=== PATIENT | male | born 1935 | race Caucasian/White ===

== ENCOUNTER 2017-01-24 16:59 | Inpatient (IN) | payer MEDICARE, BC ==
[~2017-01-24 16:59] MED LIST: ASPI325T PO; AVOD0.5C PO; CADU10TA2 PO; CLOP75 PO; EXEN10PE SQ; GLUC2.5T2 PO; INSU100V3 SC; KLOR20TA6 PO; LASI20TA PO; LISI40TA PO; NOVOLOGP2 SQ; NOVONP2 SQ; TAMS0.4C67 PO
[2017-01-24] MEDS ORDERED: LACTULOSE SYRUP 20 GM/30 ML CUP PO PRN (18:00)
[2017-01-24] MEDS ORDERED: SODIUM CHLORIDE 0.9% FLUSH 10 ML FLUSH IV FLUSH PRN (18:00)
[2017-01-24] MEDS ORDERED: NALOXONE HCL 0.4 MG/ML AMP IV PUSH PRN (18:00)
[2017-01-24] MEDS ORDERED: ONDANSETRON HCL 4 MG/2 ML VIAL IVP PRN (18:00)
[2017-01-24] MEDS ORDERED: ACETAMINOPHEN 325 MG TAB PO PRN (18:00)
[2017-01-24] MEDS ORDERED: SENNOSIDES 8.6 MG TAB PO PRN (18:00)
[2017-01-24] MEDS ORDERED: BISACODYL 10 MG SUPP RECTAL PRN (18:00)
[2017-01-24] MEDS ORDERED: MAGNESIUM HYDROXIDE SUSP 30 ML CUP PO PRN (18:00)
--- NOTE | 2017-01-24 18:27 | HHI.HP ---
HPI Service [facility] Primary Care Physician Blake Burr, DO Admission Diagnosis Diagnoses: Chief Complaint: Shortness of breath Travel History International Travel<30 Days: No Contact w/Intl Traveler <30 Da: No Traveled to Known Affected Are: No History of Present Illness This is a pleasant 81 y/o Male Patient of Doctor Will Walker who I had the pleasure to talk today and asked for direct admission for his patient, as we know he has Atrial Flutter, ASHD status post PCI and stent placement, Dm II, Hyperlipidemia, he was started on Anticoagulation for new onset of atrial flutter. also to consider antiarrhythmic medicine, the patient has Obesity, seen in his bedroom in the presence of his and he states he is been followed due to Shortness of breath for the last months and for the last two weeks is been getting worse, today saw his Primary helicopter specialist and he recommended due to CHF Exacerbation admission for further workup, also recommended to get D dimers and if positive go ahead and take a CTA versus V/Q scan depend of his renal function at this time asked for full laboratory and awaiting results. Review of Systems Constitutional: DENIES: Fever, Chills, Change in appetite Endocrine: DENIES: Heat/cold intolerance Eyes: DENIES: Blurred vision, Eye pain Cardiovascular: COMPLAINS OF: Dyspnea on Exertion Except as stated in HPI: all other systems reviewed are Neg Past Family Social History Past Medical History Atrial Flutter ASHD status post PCI stent placement to Circumflex DM II Hyperlipidemia Hypertension Hyperlipidemia Obesity CVA Diverticulosis Carotid Stenosis. Past Surgical History Tonsillectomy AAA Reported Medications Reported Meds & Active Scripts Active Reported Novolog (Insulin Aspart) 100 Units/Ml Inj Unknown Dose SQ DIRECTED Novolin N (Insulin Human NPH) 100 Units/Ml Inj 0 SQ DIRECTED Sliding Scale As Directed. Humulin N (Insulin Human NPH) 100 Unit/Ml Inj Unknown Dose SC Klor-Con M20 (Potassium Chloride Microencaps) 20 Meq Tab 20 Meq PO BID Caduet 10/20 (Amlodipine/Atorvastatin) 10 Mg/20 Mg Tab 1 Tab PO DAILY Avodart (Dutasteride) 0.5 Mg Cap 0.5 Mg PO HS Flomax (Tamsulosin HCl) 0.4 Mg Cap 0.4 Mg PO HS Byetta 10 Mcg/Dose Prefilled Pen (Exenatide) 10 Mcg/0.04 Ml Inj 10 Mcg SQ BIDAC FOR SUBCUTANEOUS INJECTION Aspirin 325 mg (Aspirin) 325 Mg Tab 325 Mg PO DAILY Plavix (Clopidogrel Bisulfate) 75 Mg Tab 75 Mg PO DAILY Glucovance 2.5/500 (Glyburide/Metformin) 2.5 Mg-500 Mg Tab 1 Tab PO DAILY WITH MEAL Lasix (Furosemide) 20 Mg Tab 20 Mg PO BID Prinivil 40 mg (Lisinopril) 40 Mg Tab 40 Mg PO DAILY Allergies: Coded Allergies: No Known Allergies (Verified , 05/08/09) Active Ordered Medications Current Medications Medications (Trade) Dose Ordered Sig/Preethi Route Start Time Stop Time Status Last Admin (NS Flush) 2 ml UNSCH PRN IV FLUSH 01/24/17 18:00 UNV (NS Flush) 2 ml BID IV FLUSH 01/24/17 21:00 UNV (Tylenol) 650 mg Q4H PRN PO 01/24/17 18:00 (Zofran Inj) 4 mg Q6H PRN IVP 01/24/17 18:00 UNV (Narcan Inj) 0.4 mg UNSCH PRN IV PUSH 01/24/17 18:00 (Arianne-Colace) 1 tab BID PO 01/24/17 21:00 (Milk Of Magnesia Liq) 30 ml Q12H PRN PO 01/24/17 18:00 (Senokot) 17.2 mg Q12H PRN PO 01/24/17 18:00 UNV (Dulcolax Supp) 10 mg DAILY PRN RECTAL 01/24/17 18:00 (Lactulose Liq) 30 ml DAILY PRN PO 01/24/17 18:00 Family History Father Mother one sister and three brothers with CAD. Social History Lives with his and denies toxic habits he smoked until 25 years ago. Physical Exam Physical Exam GENERAL: Obese patient, well-developed patient, moderate respiratory distress. SKIN: No rashes, ecchymoses or lesions. Cool and dry. HEAD: Atraumatic. Normocephalic. No temporal or scalp tenderness. EYES: Pupils equal round and reactive. Extraocular motions intact. No scleral icterus. No injection or drainage. ENT: Nose without bleeding, purulent drainage or septal hematoma. Throat without erythema, tonsillar hypertrophy or exudate. Uvula midline. Airway patent. NECK: Trachea midline. No JVD or lymphadenopathy. Supple, nontender, no meningeal signs. CARDIOVASCULAR: Irregular rate and rhythm. RESPIRATORY: Clear to auscultation. Breath sounds equal bilaterally. No wheezes , rales, or rhonchi. GASTROINTESTINAL: Abdomen soft, non-tender, nondistended. No hepato-splenomegaly , or palpable masses. No guarding. MUSCULOSKELETAL: Extremities without clubbing, cyanosis, edema 3+ NEUROLOGICAL: Awake and alert. No focal deficits. Imaging asked for CXR Caprini VTE Risk Assessment Caprini VTE Risk Assessment: Mod/High Risk (score >= 2) Caprini Risk Assessment Model Point Value = 1 Point Value = 2 Point Value = 3 Point Value = 5 Age 41-60 Minor surgery BMI > 25 kg/m2 Swollen legs Varicose veins or History of unexplained or recurrent spontaneous Oral contraceptives or hormone replacement Sepsis (< 1 month) Serious lung disease, including pneumonia (< 1 month) Abnormal pulmonary function Acute myocardial infarction Congestive heart failure (< 1 month) History of inflammatory bowel disease Medical patient at bed rest Age 61-74 Arthroscopic surgery Major open surgery (> 45 min) Laparoscopic surgery (> 45 min) Malignancy Confined to bed (> 72 hours) Immobilizing plaster cast Central venous access Age >= 75 History of VTE Family history of VTE Factor V Leiden Prothrombin [id number] Lupus anticoagulant Anticardiolipin antibodies Elevated serum homocysteine Heparin-induced thrombocytopenia Other congenital or acquired thrombophilia Stroke (< 1 month) Elective arthroplasty Hip, pelvis, or leg fracture Acute spinal cord injury (< 1 month) Prophylaxis Regimen Total Risk Factor Score Risk Level Prophylaxis Regimen 0-1 Low Early ambulation 2 Moderate Order ONE of the following: *Sequential Compression Device (SCD) *Heparin 5000 units SQ BID 3-4 Higher Order ONE of the following medications: *Heparin 5000 units SQ TID *Enoxaparin/Lovenox 40 mg SQ daily (WT < 150 kg, CrCl > 30 mL/min) *Enoxaparin/Lovenox 30 mg SQ daily (WT < 150 kg, CrCl > 10-29 mL/min) *Enoxaparin/Lovenox 30 mg SQ BID (WT < 150 kg, CrCl > 30 mL/min) AND/OR *Sequential Compression Device (SCD) 5 or more Highest Order ONE of the following medications: *Heparin 5000 units SQ TID (Preferred with Epidurals) *Enoxaparin/Lovenox 40 mg SQ daily (WT < 150 kg, CrCl > 30 mL/min) *Enoxaparin/Lovenox 30 mg SQ daily (WT < 150 kg, CrCl > 10-29 mL/min) *Enoxaparin/Lovenox 30 mg SQ BID (WT < 150 kg, CrCl > 30 mL/min) AND *Sequential Compression Device (SCD) Assessment and Plan Assessment and Plan 1. CHF exacerbation, sent by Doctor Walker from his office with history of Atrial Flutter asked for Echocardiogram, he is on Eliquis there the question by helicopter specialist about the possibility for Pulmonary emboli asked for D Dimers will start Lovenox and follow Laboratory CMP, CBA, D Dimers, Lipid panel, Hemoglobin A1C, ECG, Cardiac Enzymes Cardiology consult to his Primary helicopter specialist. Lasix 40 mg IV every 8 hours until tomorrow and follow helicopter specialist recommendations. 2. Atrial Flutter get ECG now and follow Cardiac monitoring may need Antiarrhythmic medicine 3. ASHD status post PCI stent placement to Circumflex 4. DM II continue sliding scale and on hold home medicines follow and add Insulin depend of his clinical course get Hemoglobin A1C. 5. Hyperlipidemia continue Home medicines 6. Hypertension continue anti hypertensives 7. Obesity strongly recommended diet and exercise as outpatient. 8. 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 9. Carotid Stenosis. 10. AAA stable DVT prophylaxis with Lovenox and follow Code Status Full Code. Discussed Condition With with Patient and in the room also nurse Present at all times. I had the pleasure to talk about this case with helicopter specialist Doctor Will Walker his input and recommendations Highly Appreciated. Physician Certification 2 Midnight Certification Type: Admission for Inpatient Services Order for Inpatient Services The services are ordered in accordance with Medicare regulations or non- Medicare payer requirements, as applicable. In the case of services not specified as inpatient-only, they are appropriately provided as inpatient services in accordance with the 2-midnight benchmark. Estimated LOS (days): 3 days is the estimated time the patient will need to remain in the hospital, assuming treatment plan goals are met and no additional complications. Post-Hospital Plan: Home Chalino Garcia MD Jan 24, 2017 6:27 pm
[2017-01-24 18:41] VITALS: BP 145/74; PULSE 57; PULSE 58; RESP 20; TEMP 98.3; O2SAT 97
[2017-01-24 19:00] VITALS: BP 139/76; PULSE 59; PULSE 72; RESP 18; TEMP 98.8; O2SAT 94
[2017-01-24 19:15] LABS: AUTOMATED NEUTROPHIL # 6.7 TH/MM3 (1.8-7.7); BASOPHIL % 0.4 % (0.0-2.0); EOSINOPHIL # 0.2 TH/MM3 (0-0.4); EOSINOPHIL % 1.8 % (0.0-4.0); HEMATOCRIT 35.2 % (39.0-51.0); HEMO FLAGS DIFF FINAL; LYMPH % 23.5 % (9.0-44.0); LYMPHOCYTE # 2.3 TH/MM3 (1.0-4.8); MEAN CORPUSCULAR HEMOGLOBIN 28.4 PG (27.0-34.0); MEAN CORPUSCULAR HGB CONC 34.2 % (32.0-36.0); NEUT % 68.3 % (16.0-70.0); PLATELET COUNT 212 TH/MM3 (150-450); RED BLOOD COUNT 4.24 MIL/MM3 (4.50-5.90); RED CELL DISTRIBUTION WIDTH 15.2 % (11.6-17.2); WHITE BLOOD COUNT 9.8 TH/MM3 (4.0-11.0)
[2017-01-24 19:29] LABS: ANION GAP 5 MEQ/L (5-15); AST (GOT) 16 U/L (15-37); BICARBONATE 30.1 MEQ/L (21.0-32.0); BLOOD UREA NITROGEN 19 MG/DL (7-18); CHLORIDE 104 MEQ/L (98-107); GLOMERULAR FILTRATION RATE 61 ML/MIN (>89); POTASSIUM 3.9 MEQ/L (3.5-5.1); SODIUM (NA) 139 MEQ/L (136-145)
[2017-01-24 19:31] LABS: ALT (GPT) 24 U/L (12-78)
[2017-01-24 19:36] LABS: CREATINE KINASE 228 U/L (39-308); HDL CHOLESTEROL 25.8 MG/DL (40.0-60.0); LDL CHOLESTEROL 49 MG/DL (0-99)
[2017-01-24 19:39] LABS: ALKALINE PHOSPHATASE 72 U/L (45-117); TOTAL BILIRUBIN ADULT 0.4 MG/DL (0.2-1.0)
[2017-01-24 20:00] VITALS: PULSE 62
[2017-01-24] MEDS: RESP: IPRATROPIUM 0.5 MG/2.5 ML NEB NEB SCH (20:22)
[2017-01-24] MEDS: RESP: BUDESONIDE 0.5 MG/2 ML NEB NEB SCH (20:22)
[2017-01-24 21:00] VITALS: PULSE 68
[2017-01-24] MEDS: INSULIN NovoLIN REGULAR SUPPLEMENTAL SCALE SQ SCH (21:00)
[2017-01-24] MEDS: guaiFENesin E.R. 600 MG TAB PO SCH (21:59)
[2017-01-24] MEDS: POTASSIUM CHLORIDE 20 MEQ CONTROLLED RELEASE TAB PO SCH (21:59)
[2017-01-24 22:00] VITALS: PULSE 70
[2017-01-24] MEDS: FINASTERIDE 5 MG TAB PO SCH (22:00)
[2017-01-24] MEDS: TAMSULOSIN HCL 0.4 MG CAP PO SCH (22:00)
[2017-01-24] MEDS: DOCUSATE SODIUM 50 MG/SENNA 8.6 MG TAB PO SCH (22:00)
[2017-01-24] MEDS: SODIUM CHLORIDE 0.9% FLUSH 10 ML FLUSH IV FLUSH SCH (22:01)
[2017-01-24] MEDS: FUROSEMIDE 40 MG/4 ML VIAL IV PUSH SCH (22:01)
[2017-01-24 22:38] LABS: HEMOGLOBIN A1a 1.3 %; HEMOGLOBIN A1b 2.5 %; HEMOGLOBIN Ao 78.9 %; HEMOGLOBIN LA1C 2.5 %; HEMOGLOBIN P3 4.6 %
[2017-01-24 23:00] VITALS: BP 142/69; PULSE 62; PULSE 64; RESP 18; TEMP 98.8; O2SAT 95
[2017-01-25] VITALS (24 sets, daily range): BP systolic 114–160; BP diastolic 64–86; PULSE 51–82; RESP 16–20; TEMP 97.9–98.4; O2SAT 94–99
[2017-01-25] MEDS: RESP: IPRATROPIUM 0.5 MG/2.5 ML NEB NEB SCH ×6 (00:25→20:13)
[2017-01-25 03:25] LABS: CREATINE KINASE 178 U/L (39-308)
[2017-01-25] MEDS: FUROSEMIDE 40 MG/4 ML VIAL IV PUSH SCH ×2 (06:12→17:09)
[2017-01-25 06:46] LABS: AUTOMATED NEUTROPHIL # 5.7 TH/MM3 (1.8-7.7); BASOPHIL % 0.5 % (0.0-2.0); EOSINOPHIL # 0.2 TH/MM3 (0-0.4); EOSINOPHIL % 2.3 % (0.0-4.0); HEMATOCRIT 35.8 % (39.0-51.0); HEMO FLAGS DIFF FINAL; LYMPH % 26.7 % (9.0-44.0); LYMPHOCYTE # 2.3 TH/MM3 (1.0-4.8); MEAN CORPUSCULAR HEMOGLOBIN 27.5 PG (27.0-34.0); MEAN CORPUSCULAR HGB CONC 33.2 % (32.0-36.0); MONO % 5.7 % (0.0-8.0); NEUT % 64.8 % (16.0-70.0); PLATELET COUNT 205 TH/MM3 (150-450); RED BLOOD COUNT 4.31 MIL/MM3 (4.50-5.90); RED CELL DISTRIBUTION WIDTH 15.3 % (11.6-17.2); WHITE BLOOD COUNT 8.8 TH/MM3 (4.0-11.0)
[2017-01-25 07:02] LABS: BICARBONATE 27.5 MEQ/L (21.0-32.0); POTASSIUM 3.4 MEQ/L (3.5-5.1)
[2017-01-25] MEDS ORDERED: LISINOPRIL 20 MG TAB PO SCH (09:00)
[2017-01-25] MEDS ORDERED: CADUET PO SCH (09:00)
[2017-01-25] MEDS ORDERED: CLOPIDOGREL 75 MG TAB PO SCH (09:00)
[2017-01-25] MEDS: DOCUSATE SODIUM 50 MG/SENNA 8.6 MG TAB PO SCH ×2 (09:00→21:45)
[2017-01-25] MEDS ORDERED: ASPIRIN 325 MG TAB PO SCH (09:00)
--- NOTE | 2017-01-25 09:12 | RADRPT ---
EXAM DATE/TIME: 01/25/2017 08:49 [place] COMPARISON: No previous studies available for comparison. INDICATIONS : Short of breath.Congestive heart failure. MEDICAL HISTORY : Hypercholesterolemia. Congestive heart failure. Hypertension. CVA. Irregular heart beat. Prostati tis. Diabetic. SURGICAL HISTORY : Tonsillectomy. Cardiac cath with stent placement. ENCOUNTER: Initial ACUITY: 2 days PAIN SCORE: 0/10 LOCATION: chest FINDINGS: PA and lateral views of the chest demonstrate the lungs to be symmetrically aerated without evidence of mass, infiltrate or effusion. The cardiomediastinal contours are unremarkable. Osseous structure s are intact. CONCLUSION: No acute disease. Joaquin Calderón MD on January 25, 2017 at 9:10 Board Certified Radiologist. This report was verified electronically.
[2017-01-25] MEDS: ATORVASTATIN 20 MG TAB PO SCH (09:16)
[2017-01-25] MEDS: guaiFENesin E.R. 600 MG TAB PO SCH ×2 (09:16→22:02)
[2017-01-25] MEDS: POTASSIUM CHLORIDE 20 MEQ CONTROLLED RELEASE TAB PO SCH ×2 (09:17→21:44)
[2017-01-25] MEDS: INSULIN NovoLIN REGULAR SUPPLEMENTAL SCALE SQ SCH ×4 (09:23→21:00)
[2017-01-25] MEDS: SODIUM CHLORIDE 0.9% FLUSH 10 ML FLUSH IV FLUSH SCH ×2 (09:24→21:43)
[2017-01-25] MEDS ORDERED: AMIODARONE INJ 150 MG in DEXTROSE 5% IN WATER 100ML INJ 100 ML IV ONE ×2 (09:52)
[2017-01-25] MEDS: RESP: BUDESONIDE 0.5 MG/2 ML NEB NEB SCH ×2 (10:11→20:13)
--- NOTE | 2017-01-25 10:14 | PD.CONS ---
[facility] Service Cardiology Physicians Consult Requested By Dr Jones Reason for Consult afib CHF SOB Primary Care Physician Blake Burr, DO History of Present Illness The patient is a 81 year old female with a cardiac history of new onset atrial fibrillation 12/02/2016, CVA, carotid stenosis, AAA, ASHD, HTN, HDL, DM, former smoker and obesity. The patient presented to office yesterday for routine follow up and complained of profound SOB compared to his baseline. Symptoms have been getting progressively worse over the past month, but noticed a drastic increase over the past 2 weeks. He admits to increase BLE edema. No wheezing, coughing, or orthopnea. Denies chest pain or chest tightness. Due to symptoms aforementioned, we directly admitted with patient. Today, on evaluation , he states he feels less SOB. He has less BLE edema. He received lasix, nebulized steroid and ipratropium. CXR is clear and BNP is only 26. The patient denies history of COPD or asthma. EKG shows atrial flutter with controlled ventricular response. (Olya Pelayo) Review of Systems Consitutional: COMPLAINS OF: Fatigue, DENIES: Fever, Chills, Weight gain, Weight loss Eyes: DENIES: Amaurosis Fugax, Change in vision HEENT: DENIES: Lightheadedness, Change in hearing Respiratory: COMPLAINS OF: Shortness of breath, DENIES: See HPI, Cough, Snoring , Wheezing, Sputum production Cardiovascular: DENIES: See HPI, Chest pain, Palpitations, Syncope, Tachycardia Gastrointestinal: DENIES: Nausea, Vomiting, Change in bowel habits, Reflux, Bloody stools, Melena Genitourinary: DENIES: Urinary incontinence, Difficulty voiding Integumentary: DENIES: Rash Neurologic: DENIES: Tingling or numbness, Memory problems, Poor Balance, Stroke symptoms Musculoskeletal: DENIES: Joint pain, Muscle pain, Limited range of motion, Back pain Psychiatric: DENIES: Anxiety, Depression, Sleep disturbances Hematologic: DENIES: Bruising tendencies, Bleeding tendencies Endocrine: DENIES: Weight gain, Weight loss, Thyroid disease (Olya Pelayo ) Past Family Social History Allergies: Coded Allergies: No Known Allergies (Verified , 05/08/09) Past Medical History See [facility] Past Surgical History Date: 01/02/2014. 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 There was some moderate LAD disease. RCA was a co-dominant vessel but is narrow in diameter with two 90% stenoses with collateral filling of the circumflex. Medical management was planned Reported Medications Reported Meds & Active Scripts Active Reported Novolog (Insulin Aspart) 100 Units/Ml Inj Unknown Dose SQ DIRECTED Novolin N (Insulin Human NPH) 100 Units/Ml Inj 0 SQ DIRECTED Sliding Scale As Directed. Humulin N (Insulin Human NPH) 100 Unit/Ml Inj Unknown Dose SC Klor-Con M20 (Potassium Chloride Microencaps) 20 Meq Tab 20 Meq PO BID Caduet 10/20 (Amlodipine/Atorvastatin) 10 Mg/20 Mg Tab 1 Tab PO DAILY Avodart (Dutasteride) 0.5 Mg Cap 0.5 Mg PO HS Flomax (Tamsulosin HCl) 0.4 Mg Cap 0.4 Mg PO HS Byetta 10 Mcg/Dose Prefilled Pen (Exenatide) 10 Mcg/0.04 Ml Inj 10 Mcg SQ BIDAC FOR SUBCUTANEOUS INJECTION Aspirin 325 mg (Aspirin) 325 Mg Tab 325 Mg PO DAILY Plavix (Clopidogrel Bisulfate) 75 Mg Tab 75 Mg PO DAILY Glucovance 2.5/500 (Glyburide/Metformin) 2.5 Mg-500 Mg Tab 1 Tab PO DAILY WITH MEAL Lasix (Furosemide) 20 Mg Tab 20 Mg PO BID Prinivil 40 mg (Lisinopril) 40 Mg Tab 40 Mg PO DAILY Active Ordered Medications Current Medications Medications (Trade) Dose Ordered Sig/Preethi Route Start Time Stop Time Status Last Admin (NS Flush) 2 ml UNSCH PRN IV FLUSH 01/24/17 18:00 (NS Flush) 2 ml BID IV FLUSH 01/24/17 21:00 01/25/17 09:24 (Tylenol) 650 mg Q4H PRN PO 01/24/17 18:00 (Zofran Inj) 4 mg Q6H PRN IVP 01/24/17 18:00 (Narcan Inj) 0.4 mg UNSCH PRN IV PUSH 01/24/17 18:00 (Arianne-Colace) 1 tab BID PO 01/24/17 21:00 01/24/17 22:00 (Milk Of Magnesia Liq) 30 ml Q12H PRN PO 01/24/17 18:00 (Senokot) 17.2 mg Q12H PRN PO 01/24/17 18:00 (Dulcolax Supp) 10 mg DAILY PRN RECTAL 01/24/17 18:00 (Lactulose Liq) 30 ml DAILY PRN PO 01/24/17 18:00 (Aspirin) 325 mg DAILY PO 01/25/17 09:00 01/25/17 09:16 (Plavix) 75 mg DAILY PO 01/25/17 09:00 01/25/17 09:18 (KCl) 20 meq BID PO 01/24/17 21:00 01/25/17 09:17 (Flomax) 0.4 mg HS PO 01/24/17 21:00 01/24/17 22:00 (Proscar) 5 mg HS PO 01/24/17 21:00 01/24/17 22:00 (Prinivil) 40 mg DAILY PO 01/25/17 09:00 01/25/17 09:16 (NovoLIN R SUPPLEMENTAL SCALE) 1 ACHS SLIDING SCALE SQ 01/24/17 21:00 01/25/17 09:23 (Norvasc) 10 mg DAILY PO 01/25/17 09:00 01/25/17 09:16 (Lipitor) 20 mg DAILY PO 01/25/17 09:00 01/25/17 09:16 (Atrovent Neb) 0.5 mg Q4HR NEB NEB 01/24/17 20:00 01/25/17 04:47 (Mucinex Er) 600 mg BID PO 01/24/17 21:00 01/25/17 09:16 (Pulmicort Respule Neb) 0.5 mg Q12HR NEB NEB 01/24/17 20:00 01/24/17 20:22 (Lasix Inj) 40 mg Q8HR IV PUSH 01/24/17 22:00 01/25/17 10:00 01/25/17 06:12 Family History non contributory Social History 20 pack year history, quit 25 years ago (Olya Pelayo) Physical Exam Vital Signs Vital Signs Date Time Temp Pulse Resp B/P (MAP) Pulse Ox O2 Delivery O2 Flow Rate FiO2 01/25/17 07:09 98.2 74 20 160/86 (110) 96 01/25/17 07:09 74 01/25/17 06:00 63 01/25/17 05:00 65 01/25/17 04:00 62 01/25/17 03:00 98.4 67 16 151/76 (101) 95 01/25/17 03:00 68 01/25/17 02:00 62 01/25/17 01:00 82 01/25/17 00:00 62 01/24/17 23:00 98.8 64 18 142/69 (93) 95 01/24/17 23:00 62 01/24/17 22:00 70 01/24/17 21:00 68 01/24/17 20:00 62 01/24/17 19:00 98.8 59 18 139/76 (97) 94 01/24/17 19:00 72 01/24/17 18:41 58 01/24/17 18:41 98.3 57 20 145/74 (97) 97 Physical Exam GENERAL: Obese male in mild distress SKIN: Warm and dry. HEAD: Atraumatic. Normocephalic. EYES: Pupils equal and round. No scleral icterus. No injection or drainage. ENT: No nasal bleeding or discharge. Mucous membranes pink and moist. NECK: Trachea midline. CARDIOVASCULAR: Irreg irreg RESPIRATORY: No accessory muscle use. Breath sounds equal bilaterally. Right base rales GASTROINTESTINAL: Abdomen soft, non-tender, nondistended. Hepatic and splenic margins not palpable. MUSCULOSKELETAL: Extremities without clubbing, cyanosis, or edema. NEUROLOGICAL: Awake and alert. No obvious cranial nerve deficits. Motor grossly within normal limits. Five out of 5 muscle strength in the arms and legs. Normal speech. PSYCHIATRIC: Appropriate mood and affect; insight and judgment normal. Laboratory Laboratory Tests Test 01/24/17 18:52 01/25/17 00:42 01/25/17 05:50 White Blood Count 9.8 8.8 Red Blood Count 4.24 4.31 Hemoglobin 12.0 11.9 Hematocrit 35.2 35.8 Mean Corpuscular Volume 83.0 83.0 Mean Corpuscular Hemoglobin 28.4 27.5 Mean Corpuscular Hemoglobin Concent 34.2 33.2 Red Cell Distribution Width 15.2 15.3 Platelet Count 212 205 Mean Platelet Volume 7.9 8.1 Neutrophils (%) (Auto) 68.3 64.8 Lymphocytes (%) (Auto) 23.5 26.7 Monocytes (%) (Auto) 6.0 5.7 Eosinophils (%) (Auto) 1.8 2.3 Basophils (%) (Auto) 0.4 0.5 Neutrophils # (Auto) 6.7 5.7 Lymphocytes # (Auto) 2.3 2.3 Monocytes # (Auto) 0.6 0.5 Eosinophils # (Auto) 0.2 0.2 Basophils # (Auto) 0.0 0.0 CBC Comment DIFF FINAL DIFF FINAL Differential Comment D-Dimer Quantitative (PE/DVT) 0.31 Blood Urea Nitrogen 19 17 Creatinine 1.16 1.09 Random Glucose 141 140 Total Protein 7.0 Albumin 3.6 Calcium Level 8.8 8.3 Alkaline Phosphatase 72 Aspartate Amino Transf (AST/SGOT) 16 Alanine Aminotransferase (ALT/SGPT) 24 Total Bilirubin 0.4 Sodium Level 139 140 Potassium Level 3.9 3.4 Chloride Level 104 105 Carbon Dioxide Level 30.1 27.5 Anion Gap 5 8 Estimat Glomerular Filtration Rate 61 65 Hemoglobin A1c 9.9 Total Creatine Kinase 228 178 Troponin I LESS THAN 0.02 LESS THAN 0.02 B-Type Natriuretic Peptide 26 Triglycerides Level 142 Cholesterol Level 103 LDL Cholesterol 49 HDL Cholesterol 25.8 Cholesterol/HDL Ratio 3.99 Thyroid Stimulating Hormone 3rd Gen 3.040 (Olya Pelayo) Result Diagram: 01/25/17 0550 01/25/17 0550 Imaging Last 72 hours Impressions Chest X-Ray 01/25/17 0000 Signed Impressions: Service Date/Time: Wednesday, January 25, 2017 08:49 - CONCLUSION: No acute disease. Joaquin Calderón MD (Olya Pelayo) Assessment and Plan Assessment and Plan Atrial fibrillation/flutter new onset 11/2016. On Eliquis Chronic diastolic dysfunction. EF 48% 12/2016 History of smoking- suspect COPD SOB due to above Hx ASHD, CVA DM HA1C high HLD HTN PLAN: Start amio gtt with bolus. Plan for DCC/NOLBERTO if he does not pharmacologically convert Check spirometry Continue diuresis IV Restart Eliquis and stop ASA and Plavix Check limited echo for LV function We will continue to follow The patient was seen and evaluated by Dr Walker who completed face to face encounter and physical exam, and participated in evaluation and management of the patient (Olya Pelayo) Assessment and Plan Risks of cardioversion reviewed, willing to proceed ARLINE Denise (Will Walker MD) Olya Pelayo Jan 25, 2017 10:14 Will Walker MD Jan 25, 2017 14:06
[2017-01-25] MEDS: AMIODARONE INJ 450 MG in DEXTROSE 5% IN WATE(EXCEL) INJ 241 ML IV SCH ×2 (11:30)
--- NOTE | 2017-01-25 13:08 | HHI.PR ---
Subjective Remarks This is a pleasant 81 y/o Male Patient of Doctor Will Walker who I had the pleasure to talk today and asked for direct admission for his patient, as we know he has Atrial Flutter, ASHD status post PCI and stent placement, Dm II, Hyperlipidemia, he was started on Anticoagulation for new onset of atrial flutter. also to consider antiarrhythmic medicine, the patient has Obesity, seen in his bedroom in the presence of his and he states he is been followed due to Shortness of breath for the last months and for the last two weeks is been getting worse, today saw his Primary fiscal specialist and he recommended due to CHF Exacerbation admission for further workup, also recommended to get D dimers and if positive go ahead and take a CTA versus V/Q scan depend of his renal function at this time asked for full laboratory and awaiting results. 01/25: Seen in his bedroom with Diagnosis of Atrial Fibrillation/Flutter New onset 11/25/16 On Eliquis chronic Diastolic dysfunction EF 48% 12/23, recommended to start Amiodarone bolus and continue drip, plan for Cardioversion/NOLBERTO tomorrow if no Pharmacological conversion, to continue diuresis IV, Restarted Eliquis and discontinued Aspirin and Plavix. Check Echocardiogram, no nausea, vomit or diarrhea improving clinically. Objective Vital Signs Date Time Temp Pulse Resp B/P (MAP) Pulse Ox O2 Delivery O2 Flow Rate FiO2 01/25/17 11:00 98.2 72 18 150/80 (103) 99 01/25/17 11:00 98.2 72 18 150/80 (103) 99 01/25/17 08:00 61 01/25/17 07:09 98.2 74 20 160/86 (110) 96 01/25/17 07:09 74 01/25/17 06:00 63 01/25/17 05:00 65 01/25/17 04:00 62 01/25/17 03:00 98.4 67 16 151/76 (101) 95 01/25/17 03:00 68 01/25/17 02:00 62 01/25/17 01:00 82 01/25/17 00:00 62 01/24/17 23:00 98.8 64 18 142/69 (93) 95 01/24/17 23:00 62 01/24/17 22:00 70 01/24/17 21:00 68 01/24/17 20:00 62 01/24/17 19:00 98.8 59 18 139/76 (97) 94 01/24/17 19:00 72 01/24/17 18:41 58 01/24/17 18:41 98.3 57 20 145/74 (97) 97 I/O 01/24/17 01/24/17 01/24/17 01/25/17 01/25/17 01/25/17 07:00 15:00 23:00 07:00 15:00 23:00 Intake Total 480 ml Output Total 775 ml Balance -295 ml Intake Oral 480 ml Output Urine Total 775 ml # Voids 1 # Bowel Movements 1 Result Diagram: 01/25/17 0550 01/25/17 0550 Imaging Last Impressions Chest X-Ray 01/25/17 0000 Signed Impressions: Service Date/Time: Wednesday, January 25, 2017 08:49 - CONCLUSION: No acute disease. Joaquin Calderón MD Procedures None Other Results Laboratory Tests Test 01/24/17 18:52 01/25/17 00:42 01/25/17 05:50 D-Dimer Quantitative (PE/DVT) 0.31 MG/L FEU Hemoglobin A1c 9.9 % Blood Urea Nitrogen 19 MG/DL 17 MG/DL Creatinine 1.16 MG/DL 1.09 MG/DL Random Glucose 141 MG/DL 140 MG/DL Total Protein 7.0 GM/DL Albumin 3.6 GM/DL Calcium Level 8.8 MG/DL 8.3 MG/DL Alkaline Phosphatase 72 U/L Aspartate Amino Transf (AST/SGOT) 16 U/L Alanine Aminotransferase (ALT/SGPT) 24 U/L Total Bilirubin 0.4 MG/DL Sodium Level 139 MEQ/L 140 MEQ/L Potassium Level 3.9 MEQ/L 3.4 MEQ/L Chloride Level 104 MEQ/L 105 MEQ/L Carbon Dioxide Level 30.1 MEQ/L 27.5 MEQ/L B-Type Natriuretic Peptide 26 PG/ML Triglycerides Level 142 MG/DL Cholesterol Level 103 MG/DL LDL Cholesterol 49 MG/DL HDL Cholesterol 25.8 MG/DL Cholesterol/HDL Ratio 3.99 RATIO Thyroid Stimulating Hormone 3rd Gen 3.040 uIU/ML Total Creatine Kinase 178 U/L Troponin I LESS THAN 0.02 NG/ML White Blood Count 8.8 TH/MM3 Red Blood Count 4.31 MIL/MM3 Hemoglobin 11.9 GM/DL Hematocrit 35.8 % Mean Corpuscular Volume 83.0 FL Mean Corpuscular Hemoglobin 27.5 PG Mean Corpuscular Hemoglobin Concent 33.2 % Red Cell Distribution Width 15.3 % Platelet Count 205 TH/MM3 Mean Platelet Volume 8.1 FL Neutrophils (%) (Auto) 64.8 % Lymphocytes (%) (Auto) 26.7 % Monocytes (%) (Auto) 5.7 % Eosinophils (%) (Auto) 2.3 % Basophils (%) (Auto) 0.5 % Neutrophils # (Auto) 5.7 TH/MM3 Lymphocytes # (Auto) 2.3 TH/MM3 Monocytes # (Auto) 0.5 TH/MM3 Eosinophils # (Auto) 0.2 TH/MM3 Basophils # (Auto) 0.0 TH/MM3 CBC Comment DIFF FINAL Differential Comment Anion Gap 8 MEQ/L Estimat Glomerular Filtration Rate 65 ML/MIN Objective Remarks GENERAL: Obese patient, well-developed patient, moderate respiratory distress. SKIN: No rashes, ecchymoses or lesions. Cool and dry. HEAD: Atraumatic. Normocephalic. No temporal or scalp tenderness. EYES: Pupils equal round and reactive. Extraocular motions intact. No scleral icterus. No injection or drainage. ENT: Nose without bleeding, purulent drainage or septal hematoma. Throat without erythema, tonsillar hypertrophy or exudate. Uvula midline. Airway patent. NECK: Trachea midline. No JVD or lymphadenopathy. Supple, nontender, no meningeal signs. CARDIOVASCULAR: Irregular rate and rhythm. RESPIRATORY: Clear to auscultation. Breath sounds equal bilaterally. No wheezes , rales, or rhonchi. GASTROINTESTINAL: Abdomen soft, non-tender, nondistended. No hepato-splenomegaly , or palpable masses. No guarding. MUSCULOSKELETAL: Extremities without clubbing, cyanosis, edema 3+ NEUROLOGICAL: Awake and alert. No focal deficits. Medications and IVs Current Medications Medications (Trade) Dose Ordered Sig/Preethi Route Start Time Stop Time Status Last Admin (NS Flush) 2 ml UNSCH PRN IV FLUSH 01/24/17 18:00 (NS Flush) 2 ml BID IV FLUSH 01/24/17 21:00 01/25/17 09:24 (Tylenol) 650 mg Q4H PRN PO 01/24/17 18:00 (Zofran Inj) 4 mg Q6H PRN IVP 01/24/17 18:00 (Narcan Inj) 0.4 mg UNSCH PRN IV PUSH 01/24/17 18:00 (Arianne-Colace) 1 tab BID PO 01/24/17 21:00 01/24/17 22:00 (Milk Of Magnesia Liq) 30 ml Q12H PRN PO 01/24/17 18:00 (Senokot) 17.2 mg Q12H PRN PO 01/24/17 18:00 (Dulcolax Supp) 10 mg DAILY PRN RECTAL 01/24/17 18:00 (Lactulose Liq) 30 ml DAILY PRN PO 01/24/17 18:00 (KCl) 20 meq BID PO 01/24/17 21:00 01/25/17 09:17 (Flomax) 0.4 mg HS PO 01/24/17 21:00 01/24/17 22:00 (Proscar) 5 mg HS PO 01/24/17 21:00 01/24/17 22:00 (NovoLIN R SUPPLEMENTAL SCALE) 1 ACHS SLIDING SCALE SQ 01/24/17 21:00 01/25/17 12:30 (Norvasc) 10 mg DAILY PO 01/25/17 09:00 01/25/17 09:16 (Lipitor) 20 mg DAILY PO 01/25/17 09:00 01/25/17 09:16 (Atrovent Neb) 0.5 mg Q4HR NEB NEB 01/24/17 20:00 01/25/17 12:50 (Mucinex Er) 600 mg BID PO 01/24/17 21:00 01/25/17 09:16 (Pulmicort Respule Neb) 0.5 mg Q12HR NEB NEB 01/24/17 20:00 01/25/17 10:11 (Prinivil) 40 mg BID PO 01/25/17 21:00 (Eliquis) 5 mg BID PO 01/25/17 09:45 Amiodarone HCl 450 mg/Dextrose 250 ml @ 33 mls/hr Q7H35M IV 01/25/17 10:02 A/P Assessment and Plan 1. CHF exacerbation/Chronic Diastolic dysfunction EF 48%, sent by Doctor Denise from his office with history of Atrial Flutter asked for Echocardiogram, he is on Eliquis there the question by fiscal specialist D Dimers were within normal limits. 01/25: Outpatient Pharmacy Manager following with Diagnosis of Atrial Fibrillation/Flutter New onset 11/25/16 On Eliquis chronic Diastolic dysfunction EF 48% 12/23, recommended to start Amiodarone bolus and continue drip, plan for Cardioversion/NOLBERTO tomorrow if no Pharmacological conversion, to continue diuresis IV, Restarted Eliquis and discontinued Aspirin and Plavix. Check Echocardiogram. 2. AAA stable 3. ASHD status post PCI stent placement to Circumflex 4. DM II Poorly controlled Hemoglobin A1C 9.9, continue sliding scale. scheduled insulin with every meal and started on Levemir BID, her Amiodarone is mixed with D5 increased sliding scale to Medium dose. 5. Hyperlipidemia continue Home medicines 6. Hypertension continue anti hypertensives 7. Obesity strongly recommended diet and exercise as outpatient. 8. CVA by history PT and Certified Emergency Vehicle Technician evaluation. 9. Carotid Stenosis. 10. Hypokalemia replaced and following. DVT prophylaxis with Lovenox and follow Code Status Full Code. Discussed Condition With Patient and nurse Miss Arevalo, all questions answered to the best of my abilities. Discharge Planning Once cleared by specialist Chalino Garcia MD Jan 25, 2017 13:08
[2017-01-25] MEDS: APIXABAN 5 MG TABLET PO SCH ×2 (13:36→21:45)
[2017-01-25] MEDS ORDERED: INSULIN DETEMIR 100 UNITS/ML VIAL SQ ONE (15:30)
--- NOTE | 2017-01-25 15:57 | ECHRPT ---
Indication: A Fib/Flutter CONCLUSIONS The left ventricular systolic function is low normal with an estimated ejection fraction in the rang e of 50- 55%. Normal left ventricular size. Mild concentric left ventricular hypertrophy. Mild mitral valve regurgitation. There is mild tricuspid valve regurgitation. The estimated pulmonary arterial pressure is 31 mmHg. BP: / HR: Rhythm: MEASUREMENTS (Male / Female) Normal Values Technical Quality:Technically difficult study 2D ECHO LV Diastolic Diameter PLAX 4.5 cm 4.2 - 5.9 / 3.9 - 5.3 cm LV Systolic Diameter PLAX 3.5 cm IVS Diastolic Thickness 1.8 cm 0.6 - 1.0 / 0.6 - 0.9 cm LVPW Diastolic Thickness 1.1 cm 0.6 - 1.0 / 0.6 - 0.9 cm LV Relative Wall Thickness 0.6 RV Internal Dim ED PLAX 2.6 cm M-MODE Aortic Root Diameter MM 3.5 cm LA Systolic Diameter MM 3.8 cm LA Ao Ratio MM 1.1 AV Cusp Separation MM 2.1 cm DOPPLER LV E' Lateral Velocity 7.1 cm/s LV E' Septal Velocity 6.5 cm/s TR Peak Velocity 229.0 cm/s TR Peak Gradient 21.0 mmHg Right Atrial Pressure 10.0 mmHg Pulmonary Artery Systolic Pressu 31.0 mmHg Right Ventricular Systolic Press 31.0 mmHg FINDINGS LEFT VENTRICLE The left ventricular systolic function is low normal with an estimated ejection fraction in the rang e of 50- 55%. Normal left ventricular size. Mild concentric left ventricular hypertrophy. RIGHT VENTRICLE Normal right ventricular size and systolic function. LEFT ATRIUM The left atrial size is normal. RIGHT ATRIUM The right atrial size is normal. ATRIAL SEPTUM Normal atrial septal thickness without atrial level shunting by limited color doppler interrogation. AORTA The aortic root and proximal ascending aorta are normal in size on limited imaging. MITRAL VALVE Structurally normal mitral valve. Mild mitral valve regurgitation. AORTIC VALVE Trileaflet aortic valve. No aortic valve stenosis or regurgitation. TRICUSPID VALVE Structurally normal tricuspid valve. There is mild tricuspid valve regurgitation. The estimated pulmonary arterial pressure is 31 mmHg. PULMONARY VALVE No pulmonary valve regurgitation or stenosis. VESSELS The inferior vena cava is normal in size. PERICARDIUM No pericardial effusion. Mino Greenberg MD (Electronically Signed) Final Date:25 January 2017 15:57
[2017-01-25] MEDS: INSULIN HUMAN REGULAR 1,000 UNITS/10 ML VIAL SQ SCH (17:00)
[2017-01-25] MEDS ORDERED: INSULIN DETEMIR 100 UNITS/ML VIAL SQ SCH (21:00)
[2017-01-25] MEDS: LISINOPRIL 20 MG TAB PO SCH (21:44)
[2017-01-25] MEDS: FINASTERIDE 5 MG TAB PO SCH (21:45)
[2017-01-25] MEDS: TAMSULOSIN HCL 0.4 MG CAP PO SCH (21:45)
[2017-01-26] VITALS (14 sets, daily range): BP systolic 127–155; BP diastolic 57–83; PULSE 49–89; RESP 16–18; TEMP 97.6–98.5; O2SAT 95–98
[2017-01-26] MEDS: RESP: IPRATROPIUM 0.5 MG/2.5 ML NEB NEB SCH ×4 (00:40→11:44)
[2017-01-26] MEDS: AMIODARONE INJ 450 MG in DEXTROSE 5% IN WATE(EXCEL) INJ 241 ML IV SCH ×2 (01:12)
[2017-01-26 07:11] LABS: BICARBONATE 29.2 MEQ/L (21.0-32.0); MAGNESIUM 2.2 MG/DL (1.5-2.5); POTASSIUM 3.5 MEQ/L (3.5-5.1)
[2017-01-26] MEDS: RESP: BUDESONIDE 0.5 MG/2 ML NEB NEB SCH (07:56)
[2017-01-26] MEDS: INSULIN NovoLIN REGULAR SUPPLEMENTAL SCALE SQ SCH ×3 (08:00→17:00)
[2017-01-26] MEDS: DOCUSATE SODIUM 50 MG/SENNA 8.6 MG TAB PO SCH (09:00)
[2017-01-26] MEDS: INSULIN HUMAN REGULAR 1,000 UNITS/10 ML VIAL SQ SCH ×3 (09:10→17:00)
[2017-01-26] MEDS: FUROSEMIDE 40 MG/4 ML VIAL IV PUSH SCH (09:11)
[2017-01-26] MEDS: POTASSIUM CHLORIDE 20 MEQ CONTROLLED RELEASE TAB PO SCH (09:12)
[2017-01-26] MEDS: ATORVASTATIN 20 MG TAB PO SCH (09:12)
[2017-01-26] MEDS: LISINOPRIL 20 MG TAB PO SCH (09:13)
[2017-01-26] MEDS: APIXABAN 5 MG TABLET PO SCH (09:13)
[2017-01-26] MEDS: guaiFENesin E.R. 600 MG TAB PO SCH (09:13)
[2017-01-26] MEDS: SODIUM CHLORIDE 0.9% FLUSH 10 ML FLUSH IV FLUSH SCH (09:18)
[2017-01-26] MEDS ORDERED: PROPOFOL 200 MG/20 ML AMP IV ONE (11:36)
--- NOTE | 2017-01-26 12:42 | PD.CARD.PN ---
Subjective Subjective Remarks The patient feels less SOB since admission, but continues to have intermittent SOB at rest. Remains in atrial flutter this morning. Ventricular rate decreased. Objective Medications Current Medications Medications (Trade) Dose Ordered Sig/Preethi Route Start Time Stop Time Status Last Admin (NS Flush) 2 ml UNSCH PRN IV FLUSH 01/24/17 18:00 (NS Flush) 2 ml BID IV FLUSH 01/24/17 21:00 01/26/17 09:18 (Tylenol) 650 mg Q4H PRN PO 01/24/17 18:00 (Zofran Inj) 4 mg Q6H PRN IVP 01/24/17 18:00 (Narcan Inj) 0.4 mg UNSCH PRN IV PUSH 01/24/17 18:00 (Arainne-Colace) 1 tab BID PO 01/24/17 21:00 01/25/17 21:45 (Milk Of Magnesia Liq) 30 ml Q12H PRN PO 01/24/17 18:00 (Senokot) 17.2 mg Q12H PRN PO 01/24/17 18:00 (Dulcolax Supp) 10 mg DAILY PRN RECTAL 01/24/17 18:00 (Lactulose Liq) 30 ml DAILY PRN PO 01/24/17 18:00 (KCl) 20 meq BID PO 01/24/17 21:00 01/26/17 09:12 (Flomax) 0.4 mg HS PO 01/24/17 21:00 01/25/17 21:45 (Proscar) 5 mg HS PO 01/24/17 21:00 01/25/17 21:45 (Norvasc) 10 mg DAILY PO 01/25/17 09:00 01/26/17 09:12 (Lipitor) 20 mg DAILY PO 01/25/17 09:00 01/26/17 09:12 (Atrovent Neb) 0.5 mg Q4HR NEB NEB 01/24/17 20:00 01/26/17 11:44 (Mucinex Er) 600 mg BID PO 01/24/17 21:00 01/26/17 09:13 (Pulmicort Respule Neb) 0.5 mg Q12HR NEB NEB 01/24/17 20:00 01/26/17 07:56 (Prinivil) 40 mg BID PO 01/25/17 21:00 01/26/17 09:13 (Eliquis) 5 mg BID PO 01/25/17 09:45 01/26/17 09:13 Amiodarone HCl 450 mg/Dextrose 250 ml @ 33 mls/hr Q7H35M IV 01/25/17 10:02 01/26/17 01:12 (Lasix Inj) 40 mg BID@09,18 IV PUSH 01/25/17 18:00 01/26/17 09:11 (NovoLIN R INJ) 5 units TIDAC SQ 01/25/17 17:00 01/26/17 09:10 (NovoLIN R SUPPLEMENTAL SCALE) 1 ACHS SLIDING SCALE SQ 01/25/17 17:00 01/25/17 21:00 Vital Signs / I&O Vital Signs Date Time Temp Pulse Resp B/P (MAP) Pulse Ox O2 Delivery O2 Flow Rate FiO2 01/26/17 12:00 64 01/26/17 11:00 58 01/26/17 11:00 97.7 58 18 127/73 (91) 95 01/26/17 10:00 62 01/26/17 09:00 54 01/26/17 08:00 60 01/26/17 07:00 62 01/26/17 07:00 97.6 62 18 136/83 (100) 95 01/26/17 06:00 63 01/26/17 05:00 64 01/26/17 04:00 60 01/26/17 03:00 61 01/26/17 03:00 98.2 61 16 139/57 (84) 95 01/26/17 02:07 64 01/26/17 01:12 60 157/82 01/26/17 01:00 60 01/26/17 00:00 58 01/25/17 23:00 97.9 60 16 157/82 (107) 96 01/25/17 23:00 58 01/25/17 22:00 60 01/25/17 21:00 56 01/25/17 20:00 62 01/25/17 19:00 66 01/25/17 19:00 98.4 60 18 114/64 (81) 95 01/25/17 18:30 70 149/79 01/25/17 18:00 63 01/25/17 17:00 65 01/25/17 15:00 97.9 65 16 141/75 (97) 96 01/25/17 15:00 63 01/25/17 15:00 65 141/75 01/25/17 14:00 64 01/25/17 13:00 62 I/O 01/25/17 01/25/17 01/25/17 01/26/17 01/26/17 01/26/17 07:00 15:00 23:00 07:00 15:00 23:00 Intake Total 480 ml 810 ml 857 ml Output Total 775 ml 800 ml 2100 ml 275 ml Balance -295 ml -800 ml -1290 ml 582 ml Intake Oral 480 ml 710 ml 480 ml IV Total 100 ml 377 ml Output Urine Total 775 ml 800 ml 2100 ml 275 ml # Voids 1 1 # Bowel Movements 1 1 Physical Exam GENERAL: Obese male, a bedside SKIN: Warm and dry. HEAD: Normocephalic. EYES: No scleral icterus. No injection or drainage. NECK: Supple, trachea midline. CARDIOVASCULAR: iRreg irreg, normal rate RESPIRATORY: Breath sounds equal bilaterally. No accessory muscle use. GASTROINTESTINAL: Abdomen soft, non-tender, nondistended. MUSCULOSKELETAL: No cyanosis, or edema. BACK: Nontender without obvious deformity. No CVA tenderness. Laboratory Laboratory Tests Test 01/26/17 05:15 Blood Urea Nitrogen 20 MG/DL Creatinine 1.18 MG/DL Random Glucose 127 MG/DL Calcium Level 8.4 MG/DL Phosphorus Level 3.7 MG/DL Magnesium Level 2.2 MG/DL Sodium Level 139 MEQ/L Potassium Level 3.5 MEQ/L Chloride Level 102 MEQ/L Carbon Dioxide Level 29.2 MEQ/L Anion Gap 8 MEQ/L Estimat Glomerular Filtration Rate 60 ML/MIN Imaging Last 72 hours Impressions Chest X-Ray 01/25/17 0000 Signed Impressions: Service Date/Time: Wednesday, January 25, 2017 08:49 - CONCLUSION: No acute disease. Joaquin Calderón MD Assessment and Plan Assessment and Plan Atrial fibrillation/flutter new onset 11/2016. On Eliquis Chronic diastolic dysfunction. EF 48% 12/2016 History of smoking- suspect COPD SOB due to above Hx ASHD, CVA DM HA1C high HLD HTN PLAN: NOLBERTO/DCC today at 1300 Pending spirometry report Change to torsemide PO and Spirolactone Continue eliquis The patient was seen and evaluated by Dr Walker who completed face to face encounter and physical exam, and participated in evaluation and management of the patient Late entry, patient seen and evaluated at 0900 today Olya Pelayo Jan 26, 2017 12:42
--- NOTE | 2017-01-26 12:50 | HHI.PR ---
Subjective Remarks This is a pleasant 81 y/o Male Patient of Doctor Will Walker who I had the pleasure to talk today and asked for direct admission for his patient, as we know he has Atrial Flutter, ASHD status post PCI and stent placement, Dm II, Hyperlipidemia, he was started on Anticoagulation for new onset of atrial flutter. also to consider antiarrhythmic medicine, the patient has Obesity, seen in his bedroom in the presence of his and he states he is been followed due to Shortness of breath for the last months and for the last two weeks is been getting worse, today saw his Primary computer customer support specialist and he recommended due to CHF Exacerbation admission for further workup, also recommended to get D dimers and if positive go ahead and take a CTA versus V/Q scan depend of his renal function at this time asked for full laboratory and awaiting results. 01/25: Seen in his bedroom with Diagnosis of Atrial Fibrillation/Flutter New onset 11/25/16 On Eliquis chronic Diastolic dysfunction EF 48% 12/23, recommended to start Amiodarone bolus and continue drip, plan for Cardioversion/NOLBERTO tomorrow if no Pharmacological conversion, to continue diuresis IV, Restarted Eliquis and discontinued Aspirin and Plavix. Check Echocardiogram, no nausea, vomit or diarrhea improving clinically. 01/26: Stable in his bedroom, status post Successful Cardioversion okay to discharge from computer customer support specialist standpoint. Patient with his in the room awaiting for discharge now. Objective Vital Signs Date Time Temp Pulse Resp B/P (MAP) Pulse Ox O2 Delivery O2 Flow Rate FiO2 01/26/17 12:00 64 01/26/17 11:00 58 01/26/17 11:00 97.7 58 18 127/73 (91) 95 01/26/17 10:00 62 01/26/17 09:00 54 01/26/17 08:00 60 01/26/17 07:00 62 01/26/17 07:00 97.6 62 18 136/83 (100) 95 01/26/17 06:00 63 01/26/17 05:00 64 01/26/17 04:00 60 01/26/17 03:00 61 01/26/17 03:00 98.2 61 16 139/57 (84) 95 01/26/17 02:07 64 01/26/17 01:12 60 157/82 01/26/17 01:00 60 01/26/17 00:00 58 01/25/17 23:00 97.9 60 16 157/82 (107) 96 01/25/17 23:00 58 01/25/17 22:00 60 01/25/17 21:00 56 01/25/17 20:00 62 01/25/17 19:00 66 01/25/17 19:00 98.4 60 18 114/64 (81) 95 01/25/17 18:30 70 149/79 01/25/17 18:00 63 01/25/17 17:00 65 01/25/17 15:00 97.9 65 16 141/75 (97) 96 01/25/17 15:00 63 01/25/17 15:00 65 141/75 01/25/17 14:00 64 01/25/17 13:00 62 I/O 01/25/17 01/25/17 01/25/17 01/26/17 01/26/17 01/26/17 07:00 15:00 23:00 07:00 15:00 23:00 Intake Total 480 ml 810 ml 857 ml Output Total 775 ml 800 ml 2100 ml 275 ml Balance -295 ml -800 ml -1290 ml 582 ml Intake Oral 480 ml 710 ml 480 ml IV Total 100 ml 377 ml Output Urine Total 775 ml 800 ml 2100 ml 275 ml # Voids 1 1 # Bowel Movements 1 1 Result Diagram: 01/25/17 0550 01/26/17 0515 Imaging Last Impressions Chest X-Ray 01/25/17 0000 Signed Impressions: Service Date/Time: Wednesday, January 25, 2017 08:49 - CONCLUSION: No acute disease. Joaquin Calderón MD Procedures None Other Results Laboratory Tests Test 01/24/17 18:52 01/25/17 00:42 01/25/17 05:50 01/26/17 05:15 D-Dimer Quantitative (PE/DVT) 0.31 MG/L FEU Hemoglobin A1c 9.9 % Blood Urea Nitrogen 19 MG/DL 20 MG/DL Creatinine 1.16 MG/DL 1.18 MG/DL Random Glucose 141 MG/DL 127 MG/DL Total Protein 7.0 GM/DL Albumin 3.6 GM/DL Calcium Level 8.8 MG/DL 8.4 MG/DL Alkaline Phosphatase 72 U/L Aspartate Amino Transf (AST/SGOT) 16 U/L Alanine Aminotransferase (ALT/SGPT) 24 U/L Total Bilirubin 0.4 MG/DL Sodium Level 139 MEQ/L 139 MEQ/L Potassium Level 3.9 MEQ/L 3.5 MEQ/L Chloride Level 104 MEQ/L 102 MEQ/L Carbon Dioxide Level 30.1 MEQ/L 29.2 MEQ/L B-Type Natriuretic Peptide 26 PG/ML Triglycerides Level 142 MG/DL Cholesterol Level 103 MG/DL LDL Cholesterol 49 MG/DL HDL Cholesterol 25.8 MG/DL Cholesterol/HDL Ratio 3.99 RATIO Thyroid Stimulating Hormone 3rd Gen 3.040 uIU/ML Total Creatine Kinase 178 U/L Troponin I LESS THAN 0.02 NG/ML White Blood Count 8.8 TH/MM3 Red Blood Count 4.31 MIL/MM3 Hemoglobin 11.9 GM/DL Hematocrit 35.8 % Mean Corpuscular Volume 83.0 FL Mean Corpuscular Hemoglobin 27.5 PG Mean Corpuscular Hemoglobin Concent 33.2 % Red Cell Distribution Width 15.3 % Platelet Count 205 TH/MM3 Mean Platelet Volume 8.1 FL Neutrophils (%) (Auto) 64.8 % Lymphocytes (%) (Auto) 26.7 % Monocytes (%) (Auto) 5.7 % Eosinophils (%) (Auto) 2.3 % Basophils (%) (Auto) 0.5 % Neutrophils # (Auto) 5.7 TH/MM3 Lymphocytes # (Auto) 2.3 TH/MM3 Monocytes # (Auto) 0.5 TH/MM3 Eosinophils # (Auto) 0.2 TH/MM3 Basophils # (Auto) 0.0 TH/MM3 CBC Comment DIFF FINAL Differential Comment Phosphorus Level 3.7 MG/DL Magnesium Level 2.2 MG/DL Anion Gap 8 MEQ/L Estimat Glomerular Filtration Rate 60 ML/MIN Objective Remarks GENERAL: Obese patient, well-developed patient, moderate respiratory distress. SKIN: No rashes, ecchymoses or lesions. Cool and dry. HEAD: Atraumatic. Normocephalic. No temporal or scalp tenderness. EYES: Pupils equal round and reactive. Extraocular motions intact. No scleral icterus. No injection or drainage. ENT: Nose without bleeding, purulent drainage or septal hematoma. Throat without erythema, tonsillar hypertrophy or exudate. Uvula midline. Airway patent. NECK: Trachea midline. No JVD or lymphadenopathy. Supple, nontender, no meningeal signs. CARDIOVASCULAR: Irregular rate and rhythm. RESPIRATORY: Clear to auscultation. Breath sounds equal bilaterally. No wheezes , rales, or rhonchi. GASTROINTESTINAL: Abdomen soft, non-tender, nondistended. No hepato-splenomegaly , or palpable masses. No guarding. MUSCULOSKELETAL: Extremities without clubbing, cyanosis, edema 3+ NEUROLOGICAL: Awake and alert. No focal deficits. Medications and IVs Current Medications Medications (Trade) Dose Ordered Sig/Preethi Route Start Time Stop Time Status Last Admin (NS Flush) 2 ml UNSCH PRN IV FLUSH 01/24/17 18:00 (NS Flush) 2 ml BID IV FLUSH 01/24/17 21:00 01/26/17 09:18 (Tylenol) 650 mg Q4H PRN PO 01/24/17 18:00 (Zofran Inj) 4 mg Q6H PRN IVP 01/24/17 18:00 (Narcan Inj) 0.4 mg UNSCH PRN IV PUSH 01/24/17 18:00 (Arianne-Colace) 1 tab BID PO 01/24/17 21:00 01/25/17 21:45 (Milk Of Magnesia Liq) 30 ml Q12H PRN PO 01/24/17 18:00 (Senokot) 17.2 mg Q12H PRN PO 01/24/17 18:00 (Dulcolax Supp) 10 mg DAILY PRN RECTAL 01/24/17 18:00 (Lactulose Liq) 30 ml DAILY PRN PO 01/24/17 18:00 (Flomax) 0.4 mg HS PO 01/24/17 21:00 01/25/17 21:45 (Proscar) 5 mg HS PO 01/24/17 21:00 01/25/17 21:45 (Norvasc) 10 mg DAILY PO 01/25/17 09:00 01/26/17 09:12 (Lipitor) 20 mg DAILY PO 01/25/17 09:00 01/26/17 09:12 (Atrovent Neb) 0.5 mg Q4HR NEB NEB 01/24/17 20:00 01/26/17 11:44 (Mucinex Er) 600 mg BID PO 01/24/17 21:00 01/26/17 09:13 (Pulmicort Respule Neb) 0.5 mg Q12HR NEB NEB 01/24/17 20:00 01/26/17 07:56 (Prinivil) 40 mg BID PO 01/25/17 21:00 01/26/17 09:13 (Eliquis) 5 mg BID PO 01/25/17 09:45 01/26/17 09:13 Amiodarone HCl 450 mg/Dextrose 250 ml @ 33 mls/hr Q7H35M IV 01/25/17 10:02 01/26/17 01:12 (NovoLIN R INJ) 5 units TIDAC SQ 01/25/17 17:00 01/26/17 09:10 (NovoLIN R SUPPLEMENTAL SCALE) 1 ACHS SLIDING SCALE SQ 01/25/17 17:00 01/25/17 21:00 (Demadex) 20 mg DAILY PO 01/27/17 09:00 UNV (Aldactone) 25 mg BID@18 PO 01/27/17 09:00 UNV A/P Assessment and Plan 1. CHF exacerbation/Chronic Diastolic dysfunction EF 48%, sent by Doctor Denise from his office with history of Atrial Flutter asked for Echocardiogram, he is on Eliquis there the question by computer customer support specialist D Dimers were within normal limits. 01/25: Bio Medical Technician following with Diagnosis of Atrial Fibrillation/Flutter New onset 11/25/16 On Eliquis chronic Diastolic dysfunction EF 48% 12/23, recommended to start Amiodarone bolus and continue drip, plan for Cardioversion/NOLBERTO tomorrow if no Pharmacological conversion, to continue diuresis IV, Restarted Eliquis and discontinued Aspirin and Plavix. Status post Cardioversion. 2. AAA stable 3. ASHD status post PCI stent placement to Circumflex 4. DM II Poorly controlled Hemoglobin A1C 9.9, continue sliding scale. will continue Home medicines at discharge. 5. Hyperlipidemia continue Home medicines 6. Hypertension continue anti hypertensives 7. Obesity strongly recommended diet and exercise as outpatient. 8. CVA by history PT and Computer Operator evaluation. 9. Carotid Stenosis. 10. Hypokalemia replaced DVT prophylaxis with Lovenox and follow Code Status Full Code. Discussed Condition With Patient, his and Nurse, all questions answered to the best of my abilities. Discharge Planning Discharge Home now. Chalino Garcia MD Jan 26, 2017 12:50
[2017-01-26] MEDS ORDERED: SPIR25 PO (17:51)
[2017-01-26] MEDS ORDERED: APIX5TAB PO (17:51)
[2017-01-26] MEDS ORDERED: TORS1TAB12 PO (17:51)
[2017-01-26] MEDS ORDERED: LISI-515 PO (17:51)
[2017-01-26] MEDS ORDERED: AMIO200T PO (17:52)
--- NOTE | 2017-01-26 17:54 | HHI.DS ---
Discharge Summary Admission Date Jan 24, 2017 at 17:03 Discharge Date: Jan 26, 2017 Admitting Diagnosis (1) Atrial fibrillation and flutter ICD Code: I48.91 - Unspecified atrial fibrillation; I48.92 - Unspecified atrial flutter Diagnosis: Principal Procedures Cardioversion. Brief History - From Admission This is a pleasant 81 y/o Male Patient of Doctor Will Walker who I had the pleasure to talk today and asked for direct admission for his patient, as we know he has Atrial Flutter, ASHD status post PCI and stent placement, Dm II, Hyperlipidemia, he was started on Anticoagulation for new onset of atrial flutter. also to consider antiarrhythmic medicine, the patient has Obesity, seen in his bedroom in the presence of his and he states he is been followed due to Shortness of breath for the last months and for the last two weeks is been getting worse, today saw his Primary eating disorder specialist and he recommended due to CHF Exacerbation admission for further workup, also recommended to get D dimers and if positive go ahead and take a CTA versus V/Q scan depend of his renal function at this time asked for full laboratory and awaiting results. CBC/BMP: 01/25/17 0550 01/26/17 0515 Significant Findings Laboratory Tests Test 01/24/17 18:52 01/25/17 00:42 01/25/17 05:50 01/26/17 05:15 Red Blood Count 4.24 MIL/MM3 (4.50-5.90) 4.31 MIL/MM3 (4.50-5.90) Hemoglobin 12.0 GM/DL (13.0-17.0) 11.9 GM/DL (13.0-17.0) Hematocrit 35.2 % (39.0-51.0) 35.8 % (39.0-51.0) Blood Urea Nitrogen 19 MG/DL (7-18) 20 MG/DL (7-18) Random Glucose 141 MG/DL (74-106) 140 MG/DL (74-106) 127 MG/DL (74-106) Estimat Glomerular Filtration Rate 61 ML/MIN (>89) 65 ML/MIN (>89) 60 ML/MIN (>89) Hemoglobin A1c 9.9 % (4.3-6.0) Troponin I LESS THAN 0.02 NG/ML LESS THAN 0.02 NG/ML Cholesterol Level 103 MG/DL (120-200) HDL Cholesterol 25.8 MG/DL (40.0-60.0) Calcium Level 8.3 MG/DL (8.5-10.1) 8.4 MG/DL (8.5-10.1) Potassium Level 3.4 MEQ/L (3.5-5.1) Imaging Last Impressions Chest X-Ray 01/25/17 0000 Signed Impressions: Service Date/Time: Wednesday, January 25, 2017 08:49 - CONCLUSION: No acute disease. Joaquin Calderón MD PE at Discharge GENERAL: Obese patient, well-developed patient, moderate respiratory distress. SKIN: No rashes, ecchymoses or lesions. Cool and dry. HEAD: Atraumatic. Normocephalic. No temporal or scalp tenderness. EYES: Pupils equal round and reactive. Extraocular motions intact. No scleral icterus. No injection or drainage. ENT: Nose without bleeding, purulent drainage or septal hematoma. Throat without erythema, tonsillar hypertrophy or exudate. Uvula midline. Airway patent. NECK: Trachea midline. No JVD or lymphadenopathy. Supple, nontender, no meningeal signs. CARDIOVASCULAR: Irregular rate and rhythm. RESPIRATORY: Clear to auscultation. Breath sounds equal bilaterally. No wheezes , rales, or rhonchi. GASTROINTESTINAL: Abdomen soft, non-tender, nondistended. No hepato-splenomegaly , or palpable masses. No guarding. MUSCULOSKELETAL: Extremities without clubbing, cyanosis, edema 3+ NEUROLOGICAL: Awake and alert. No focal deficits. Hospital Course This is a pleasant 81 y/o Male Patient of Doctor Will Walker who I had the pleasure to talk today and asked for direct admission for his patient, as we know he has Atrial Flutter, ASHD status post PCI and stent placement, Dm II, Hyperlipidemia, he was started on Anticoagulation for new onset of atrial flutter. also to consider antiarrhythmic medicine, the patient has Obesity, seen in his bedroom in the presence of his and he states he is been followed due to Shortness of breath for the last months and for the last two weeks is been getting worse, today saw his Primary eating disorder specialist and he recommended due to CHF Exacerbation admission for further workup, also recommended to get D dimers and if positive go ahead and take a CTA versus V/Q scan depend of his renal function at this time asked for full laboratory and awaiting results. 01/25: Seen in his bedroom with Diagnosis of Atrial Fibrillation/Flutter New onset 11/25/16 On Eliquis chronic Diastolic dysfunction EF 48% 12/23, recommended to start Amiodarone bolus and continue drip, plan for Cardioversion/NOLBERTO tomorrow if no Pharmacological conversion, to continue diuresis IV, Restarted Eliquis and discontinued Aspirin and Plavix. Check Echocardiogram, no nausea, vomit or diarrhea improving clinically. 01/26: Stable in his bedroom, status post Successful Cardioversion okay to discharge from eating disorder specialist standpoint. Patient with his in the room awaiting for discharge now. Assessment and Plan 1. CHF exacerbation/Chronic Diastolic dysfunction EF 48%, sent by Doctor Walker from his office with history of Atrial Flutter asked for Echocardiogram, he is on Eliquis there the question by eating disorder specialist D Dimers were within normal limits. 01/25: Field Sales Associate following with Diagnosis of Atrial Fibrillation/Flutter New onset 11/25/16 On Eliquis chronic Diastolic dysfunction EF 48% 12/23, recommended to start Amiodarone bolus and continue drip, plan for Cardioversion/NOLBERTO tomorrow if no Pharmacological conversion, to continue diuresis IV, Restarted Eliquis and discontinued Aspirin and Plavix. Status post Cardioversion. 2. AAA stable 3. ASHD status post PCI stent placement to Circumflex 4. DM II Poorly controlled Hemoglobin A1C 9.9, continue sliding scale. will continue Home medicines at discharge. 5. Hyperlipidemia continue Home medicines 6. Hypertension continue anti hypertensives 7. Obesity strongly recommended diet and exercise as outpatient. 8. CVA by history PT and Supervisor Product Inspection evaluation. 9. Carotid Stenosis. 10. Hypokalemia replaced DVT prophylaxis with Lovenox and follow Code Status Full Code. Discussed Condition With Patient, his and Nurse, all questions answered to the best of my abilities. Discharge Planning Discharge Home now. Pt Condition on Discharge: Good Discharge Disposition: Discharge Home Discharge Time: <= 30 minutes Discharge Instructions DIET: Follow Instructions for: Heart Healthy Diet, Diabetic Diet Activities you can perform: Regular-No Restrictions Other Activity Instructions: Avoid strenous exercise. Chalino Garcia MD Jan 26, 2017 17:54
--- NOTE | 2017-01-26 21:10 | EKG ---
Date Performed: 01/24/2017 Time Performed: 19:15:42 PTAGE: 81 years EKG: Atrial fibrillation Left axis deviation RBBB with left anterior fascicular block Abnormal E CG PREVIOUS TRACING : 11/10/2007 13.19 Compared with previous EKG atrial fibrillation/flutter is n ew DOCTOR: Jaxson Stahl Interpretating Date/Time 01/26/2017 21:01:12
--- NOTE | 2017-01-26 21:59 | CF ---
cc: WILL WALKER M.D. TRANSESOPHAGEAL ECHOCARDIOGRAM INDICATION 1. Planned cardioversion, rule out left atrial appendage thrombus. 2. Mitral regurgitation. CONSENT Fully informed consent was obtained prior to see the procedure. The risks of , bleeding, myocardial infarction, perforation, aspiration, foreseen and unforeseen complications were reviewed. The patient fully appeared to understand the risks. PROCEDURAL STATEMENT The patient was draped and prepped in the usual manner. The patient was given anesthesia as per the Anesthesia Department. Following this the patient had a full NOLBERTO performed. FINDINGS The interatrial septum was intact. The interventricular septum was intact. The left atrial appendage was free of thrombus. The mitral valve moved normally. There was evidence of mild to moderate mitral regurgitation. There was mild tricuspid regurgitation and trace aortic regurgitation. The aorta was visualized and was calcified but no obvious thrombus was seen. CONCLUSION No evidence of left atrial appendage thrombus. Mild to moderate mitral regurgitation. Mild tricuspid regurgitation. Will Walker MD, FRCP,[facility]/TAI /2:24 PM /9:42 PM
--- NOTE | 2017-01-26 22:07 | MP ---
cc: WILL WALKER M.D. DATE OF SURGERY 01/26/17 PROCEDURE PERFORMED Cardioversion. INDICATION FOR CARDIOVERSION Atrial flutter. CONSENT Full informed consent was obtained prior to the procedure. The risks of , bleeding, perforation, aspiration, cardiac arrest, foreseen and unforeseen complications were reviewed. The patient fully appeared to understand the risks. PROCEDURAL STATEMENT The patient was draped and prepped in the usual manner. The patient had a full NOLBERTO performed. Following the NOLBERTO the patient received a 100 joules synchronized shock which converted sinus rhtyhm. CONCLUSION Successful cardioversion from atrial flutter to sinus rhythm. Will Walker MD, CP,[facility]/EO /2:26 PM /9:56 PM
--- NOTE | 2017-01-26 23:40 | EKG ---
Date Performed: 01/26/2017 Time Performed: 14:44:00 PTAGE: 81 years EKG: Compared to prior tracing no significant change Sinus rhythm with 1st degree A-V block. Consider left atrial abnormality Left axis deviation RBBB with left anter ior fascicular block Abnormal ECG PREVIOUS TRACING : 01/26/2017 12.35 Compared to the previous tracing, now most likely normal si nus rhythm DOCTOR: Randolph Shaw Interpretating Date/Time 01/26/2017 23:39:25
--- NOTE | 2017-01-26 23:49 | EKG ---
Date Performed: 01/26/2017 Time Performed: 12:35:36 PTAGE: 81 years EKG: Possible atrial flutter with slow ventricular response. Left axis deviation RBBB with left anterior fascicular block Inferior T wave changes are nonspecific Abnormal ECG PREVIOUS TRACING : 01/24/2017 19.15 Compared to prior tracing no significant change DOCTOR: Randolph Shaw Interpretating Date/Time 01/26/2017 23:48:09
[2017-01-27] MEDS ORDERED: SPIRONOLACTONE 25 MG TAB PO SCH (09:00)
[2017-01-27] MEDS ORDERED: TORSEMIDE 20 MG TAB PO SCH (09:00)
--- NOTE | 2017-01-31 11:42 | RSPPFT ---
DATE OF PROCEDURE: 01/25/17 COMMENTS: Spirometry demonstrates an FEV1 of 1.7 at 73% of predicted, FVC of 2.0 at 67%, FEF 25-75 is 114% of predicted. Post-bronchodilator study demonstrated no significant change. Lung volumes were not completed. Flow volume loops suggest a restrictive defect. IMPRESSION: 1. No significant obstructive disease. 2. Probable mild to moderate restrictive disease. 3. No significant change following use of bronchodilator.
== END 2017-01-26 19:05 | disposition home or self-care (01) | DRG 308 ==
LOC: HCIS 17:03
PROVIDERS: ADMIT Internal Medicine; ATTEND Internal Medicine
PROC: 5A2204Z Restoration of Cardiac Rhythm, Single (ICD-10-PCS; principal; 2017-01-26)
DX: I48.92 Unspecified atrial flutter (principal); I50.33 Acute on chronic diastolic (congestive) heart failure; I65.29 Occlusion and stenosis of unspecified carotid artery; E11.65 Type 2 diabetes mellitus with hyperglycemia; I11.0 Hypertensive heart disease with heart failure; I25.10 Atherosclerotic heart disease of native coronary artery without angina pectoris; E78.5 Hyperlipidemia, unspecified; K57.90 Diverticulosis of intestine, part unspecified, without perforation or abscess without bleeding; E66.9 Obesity, unspecified; E87.6 Hypokalemia; I48.91 Unspecified atrial fibrillation; I71.4 Abdominal aortic aneurysm, without rupture; Z79.01 Long term (current) use of anticoagulants; Z86.73 Personal history of transient ischemic attack (TIA), and cerebral infarction without residual deficits; Z95.5 Presence of coronary angioplasty implant and graft; Z87.891 Personal history of nicotine dependence; Z79.4 Long term (current) use of insulin
CPT/HCPCS: 71020; 80048; 80053; 80061; 82550; 82948; 83036; 83735; 83880; 84100; 84443; 84484; 85025; 85379; 93005; 93306; 94060; 94150; 94640; 94664; J0282; J1815; J1940; J7060; J7626; J7644